=== PATIENT | female | born 1985 | race African-American/Black ===

== ENCOUNTER 2022-03-10 18:50 | Emergency (ER) | payer BC | END 2022-03-10 20:55 | disposition home or self-care (01) | LOC: CSHERS 18:50 | DX: O99.891 Other specified diseases and conditions complicating pregnancy (principal); N81.2 Incomplete uterovaginal prolapse; Z3A.11 11 weeks gestation of pregnancy | CPT/HCPCS: 99284 ==

== ENCOUNTER 2022-09-12 09:29 | Inpatient (IN) | payer OTHER ==
[~2022-09-12 09:29] MED LIST: Bupivacaine HCl 0.5%/Epinephrine 1:200,000/PF 30 ml Vial ONE; Bupivacaine PF 0.5% 30 ML VIAL ONE
[2022-09-12 09:58] VITALS: BMI 30.7
[2022-09-12] MEDS ORDERED: Ibuprofen 800 MG TAB PO PRN (11:34)
[2022-09-12] MEDS ORDERED: Butorphanol Tartrate 1 MG/ML VIAL SLOW IVP PRN (11:34)
[2022-09-12] MEDS ORDERED: Diphenoxylate HCl/Atropine Tablet PO PRN (11:34)
[2022-09-12] MEDS ORDERED: hydrALAZINE 20 MG/ML VIAL SLOW IVP PRN ×2 (11:34→22:48)
[2022-09-12] MEDS ORDERED: Misoprostol 200 MCG TAB PR PRN (11:34)
[2022-09-12] MEDS ORDERED: Carboprost 250 MCG/ML AMP IM PRN (11:34)
[2022-09-12] MEDS ORDERED: HYDROcodone/Acetaminophen 5/325 mg Tablet PO PRN ×3 (11:34→22:48)
[2022-09-12] MEDS ORDERED: Promethazine HCl 25 MG/ML VIAL IM PRN ×3 (11:34→22:48)
[2022-09-12] MEDS ORDERED: Methylergonovine 0.2 MG/ML VIAL IM PRN (11:34)
[2022-09-12] MEDS ORDERED: Acetaminophen 500 MG TAB PO PRN (11:34)
[2022-09-12] MEDS ORDERED: Lidocaine 1% (PF) 30 ML VIAL SC PRN (11:34)
[2022-09-12] MEDS ORDERED: Ondansetron PF 4 MG/2 ML Vial IVP PRN ×3 (11:34→22:48)
[2022-09-12] MEDS ORDERED: NS w/ Oxytocin 30 units 500 ML IV SCH ×2 (11:45)
[2022-09-12] MEDS ORDERED: Fentanyl 2 mcg/Bup 0.1% Cadd 100 ML ONE (12:01)
[2022-09-12] MEDS: Lactated Ringer's 1,000 ML IV SCH ×2 (12:15→23:01)
[2022-09-12 12:37] LABS: Hemoglobin 10.7 g/dL (12.0-15.5); Mean Corpuscular HGB CONC 31.7 g/dL (32.0-36.0); Mean Corpuscular Hemoglobin 27.3 pg (27.0-33.0); Mean Corpuscular Volume 86.2 fl (81.6-98.3); Mean Platelet Volume 12.7 fl (7.4-10.4); Platelet Count 173 10x3/uL (150-450); RBC Distribution Width 21.1 % (11.5-14.5); Red Blood Cell (RBC) Count 3.92 10x6/uL (3.90-5.03); White Blood Cell (WBC) Count 4.9 10x3/uL (3.5-10.5)
[2022-09-12] MEDS ORDERED: ePHEDrine Sulfate 50 MG/10 ML VIAL SLOW IVP PRN (13:44)
[2022-09-12] MEDS ORDERED: Naloxone HCl 0.4 mg/ml Vial IVP PRN ×2 (13:44)
[2022-09-12] MEDS ORDERED: Acetaminophen 325 MG TAB PO PRN (13:44)
[2022-09-12] MEDS ORDERED: diphenhydrAMINE 50 MG/ML VIAL IVP PRN (13:44)
[2022-09-12] MEDS ORDERED: Moisturizing Cream (Eucerin) 113 GM JAR TOP PRN (13:44)
[2022-09-12] MEDS ORDERED: Fentanyl 2 mcg/Bupivacaine 0.1% Cassette 100 ML EPIDURAL SCH (13:45)
[2022-09-12] MEDS ORDERED: Communication Order-Pharmacy FS SCH (13:45)
[2022-09-12 13:55] LABS: Syphilis Antibody Nonreactive (Nonreactive); Syphilis Antibody Index 0.05 S/CO (<1.00 Non-Reactive)
[2022-09-12 13:57] LABS: Hep B Surf Ag Non-Reactive S/CO (NonReactive)
[2022-09-12] MEDS ORDERED: Lactated Ringer's 500 ML IV PRN (14:13)
[2022-09-12 15:07] LABS: SARS-CoV-2 NAA Rapid Test Not Detected (NotDetected)
[2022-09-12] MEDS ORDERED: Preparation H Ointment 28 GM TUBE PR PRN (22:48)
[2022-09-12] MEDS ORDERED: Milk Of Magnesia 30 ML UDCUP PO PRN (22:48)
[2022-09-12] MEDS ORDERED: Bisacodyl 10 MG SUPP PR PRN (22:48)
[2022-09-12] MEDS ORDERED: Benzocaine-Menthol 82.5 ML CAN TOP PRN (22:48)
[2022-09-12] MEDS ORDERED: Lanolin Ointment 7 GM TUBE TOP PRN (22:48)
[2022-09-12] MEDS ORDERED: diphenhydrAMINE 25 MG CAP PO PRN (22:48)
[2022-09-12] MEDS ORDERED: Boostrix 0.5 ML (Tdap) VIAL (>/=7 yrs of age) IM ONE (22:48)
[2022-09-12] MEDS ORDERED: Docusate 100 MG CAP PO SCH (23:15)
[2022-09-12] MEDS: Ibuprofen 800 MG TAB PO SCH (23:48)
[2022-09-13] MEDS: Ferrous Sulfate 325 MG TAB PO SCH ×2 (07:51→17:30)
[2022-09-13] MEDS: Ibuprofen 800 MG TAB PO SCH ×2 (07:51→14:54)
[2022-09-13] MEDS ORDERED: Prenatal Vitamin 1 TAB PO SCH (09:00)
[2022-09-13] MEDS ORDERED: Docusate 100 MG CAP PO SCH (09:00)
[2022-09-13 16:33] VITALS: BP 120/70; TEMP 98.5
[2022-09-13] MEDS ORDERED: Ibuprofen 800 MG TAB PO SCH (22:00)
== END 2022-09-13 20:20 | disposition home or self-care (01) | DRG 807 ==
LOC: CSHLD/OP 09:29 → CSHLD 17:16 → CSHPP 22:37
PROVIDERS: ADMIT Student in an Organized Health Care Education/Training Program; ATTEND Student in an Organized Health Care Education/Training Program
PROC: 10E0XZZ Delivery of Products of Conception, External Approach (ICD-10-PCS; principal; 2022-09-12)
DX: O80 Encounter for full-term uncomplicated delivery (principal); Z37.0 Single live birth; Z3A.38 38 weeks gestation of pregnancy; Z20.822 Contact with and (suspected) exposure to COVID-19; Z79.899 Other long term (current) drug therapy
CPT/HCPCS: 51702; 85027; 86780; 86850; 86900; 86901; 87340; 99285; J2001; J2590; S0020; U0002